=== PATIENT | male | born 1960 | race Caucasian/White ===

== ENCOUNTER 2020-09-08 19:45 | Emergency (ER) | payer OTHER ==
[~2020-09-08] VITALS: Ht 177.8 cm; Wt 97.8 kg
[2020-09-08 19:56] VITALS: BP 141/84
--- NOTE | 2020-09-08 20:06 | NUR ---
Pt IVANNA from triage post seeing DEENA Sadler.
--- NOTE | 2020-09-08 20:53 | NUR ---
Pt refuses to stay, evaluated by VINCENT hastings
== END 2020-09-08 21:07 | disposition left against medical advice (07) ==
LOC: ED 20:00
DX: H53.2 Diplopia (principal)
CPT/HCPCS: 99282